=== PATIENT | male | born 1985 | race Caucasian/White ===

== ENCOUNTER 2023-11-26 08:59 | Emergency (ER) | payer MEDICAID ==
[~2023-11-26] VITALS: Ht 170.2 cm; Wt 65.8 kg
[2023-11-26 09:03] VITALS: BP_SYST 136; PULSE 124; RESP 18; TEMP 98.3; O2SAT 96
[2023-11-26] MEDS: NS 500 ML IV ONE (09:45)
[2023-11-26 10:05] LABS: BASOPHILS # (AUTO) 0.1 K/uL (0.0-0.2); EOSINOPHILS # (AUTO) 0.2 K/uL (0.0-0.4); EOSINOPHILS % (AUTO) 1.1 % (0.0-4.0); HEMATOCRIT 43.9 % (36-54); HEMOGLOBIN 14.8 g/dL (14.0-18.0); LYMPHOCYTES # (AUTO) 2.1 K/uL (1.0-5.5); LYMPHOCYTES % (AUTO) 13.9 % (20.5-51.5); MEAN CORPUSCULAR HEMOGLOBIN 30 pg (27-31); MEAN CORPUSCULAR HGB CONC 34 % (32-36); MEAN CORPUSCULAR VOLUME 90 fL (79.0-98.0); MONOCYTES # (AUTO) 1.4 K/uL (0.0-1.0); MONOCYTES % (AUTO) 9.7 % (1.7-9.3); NEUTROPHILS % (AUTO) 74.3 % (40.0-70.0); PLATELET COUNT (AUTO) 464 K/uL (130-430); RED BLOOD CELL COUNT(AUTO) 4.87 MIL/uL (4.2-6.2); RED CELL DISTRIBUTION WIDTH 13.7 % (9.0-15.0); WHITE BLOOD COUNT (AUTO) 14.8 K/uL (4.8-10.8)
[2023-11-26 10:18] LABS: INR 0.9 (0.80-1.20)
[2023-11-26 11:07] LABS: BILIRUBIN,URINE NEGATIVE (NEGATIVE); BLOOD, URINE NEGATIVE (NEGATIVE); CLARITY/URINE CLEAR (CLEAR); COLOR,URINE YELLOW (YELLOW); GLUCOSE,URINE NEGATIVE (NEGATIVE); KETONES,URINE NEGATIVE (NEGATIVE); LEUKOCYTE ESTERASE ,URINE NEGATIVE (NEGATIVE); NITRITE, URINE NEGATIVE (NEGATIVE); PROTEIN URINE NEGATIVE (NEGATIVE); UROBILINOGEN,URINE 0.2 (0.2-1.0)
[2023-11-26] MEDS: ACETAMINOPHEN 325 MG TABLET PO ONE (11:16)
[2023-11-26 11:25] LABS: BARBITURATE, URINE NEGATIVE (NEG <=200); BENZODIAZEPINE, URINE NEGATIVE (NEG <=150); CANNABINOID, URINE POSITIVE (NEG <=50); COCAINE, URINE NEGATIVE (NEG <=150); METHAMPHETAMINES SCREEN,URINE NEGATIVE (NEG <=500); OPIATE, URINE NEGATIVE (NEG <=100); PHENCYCLIDINE SCREEN,URINE NEGATIVE (NEG <=25); UR TRICYCLIC ANTIDEPRESSANTS NEGATIVE (NEG <=300); URINE AMPHETAMINE NEGATIVE (NEG <=500); URINE METHADONE NEGATIVE (NEG <=200); URINE OXYCODONE SCREEN NEGATIVE (NEG <=100)
[2023-11-26 11:43] LABS: ANION GAP 10 (5-15); CALCIUM 9.1 mg/dL (8.4-11.0); CARBON DIOXIDE 27 mmol/L (23-29); CHLORIDE 96 mmol/L (98-107); GFR AFRICAN AMERICAN 140 mL/min (>90); GFR NON AFRICAN-AMERICAN 116 mL/min (>90); GLUCOSE 115 mg/dL (74-106); POTASSIUM 4.7 mmol/L (3.5-5.1); SODIUM SERUM 133 mmol/L (136-145); UREA NITROGEN, BLOOD 16 mg/dL (8-21)
[2023-11-26 11:44] LABS: ALCOHOL, BLOOD < 3 mg/dL (<10)
[2023-11-26] MEDS ORDERED: AMOX500C2 PO (13:25)
[2023-11-26 13:46] VITALS: BP_SYST 129; PULSE 88; RESP 18; TEMP 98.1; O2SAT 99
== END 2023-11-26 13:45 | disposition home or self-care (01) ==
LOC: SED 08:59
DX: R51.9 Headache, unspecified (principal); R00.0 Tachycardia, unspecified; E86.0 Dehydration; Z79.2 Long term (current) use of antibiotics
CPT/HCPCS: 99284; 96360; 70450; 71045; 80307; 80048; 81001; 85025; 85610; 85730; 36415; 81003; G0482; J7040